=== PATIENT | female | born 1995 | race Caucasian/White ===

== ENCOUNTER 2016-06-19 13:03 | Emergency (ER) | payer OTHER | END 2016-06-19 16:09 | disposition home or self-care (01) | LOC: FER 13:03 | DX: J30.2 Other seasonal allergic rhinitis (principal); J02.9 Acute pharyngitis, unspecified; F17.210 Nicotine dependence, cigarettes, uncomplicated; Z88.9 Allergy status to unspecified drugs, medicaments and biological substances | CPT/HCPCS: 87450; 99283 ==

== ENCOUNTER 2020-09-15 12:26 | Emergency (ER) | payer OTHER ==
[~2020-09-15 12:26] MED LIST: 8 HOUR650 MG PO; IMPLANON; MOTRIN600 MG PO; NAPROXEN500 MG PO; NORCO 5-325 TA1 EACH PO; PEPCID AC20 MG PO; PREDNISONE 20MG20 MG PO; PRENATAL FORMU1 EACH PO; VITAMIN D2000 UNI1 PO; ZYRTEC10 M3 PO
[2020-09-15 14:54] LABS: BASOPHIL 0.3 % (0-2); EOSINOPHIL 1.4 % (0-5); HCT 44.7 % (37.0-47.0); HGB 15.3 g/dl (12.5-16.0); MCH 31.9 pg (25.0-31.0); MCHC 34.2 g/dL (32.0-36.0); MCV 93.1 fL (78.0-100.0); MPV 9.9 fL (6.0-9.5); NRBC 0; PLT 304 K/uL (150-400); RDW 11.8 % (11.5-14.0); WBC 9.5 K/uL (4.0-10.5)
[2020-09-15 15:12] LABS: ALBUMIN 4.1 g/dL (3.4-5.0); BILIRUBIN - TOTAL 0.4 mg/dL (0.2-1.0); BUN/CREAT RATIO (CALC) 13.9 RATIO; CREATININE 0.72 mg/dL (0.51-0.95); GLOBULIN (CALCULATION) 3.5 g/dL; POTASSIUM 3.4 mmol/L (3.5-5.1); TOTAL PROTEIN 7.6 g/dL (6.4-8.2)
[2020-09-15 15:30] LABS: BILIRUBIN NEGATIVE (NEGATIVE); BLOOD NEGATIVE Ery/uL (NEGATIVE); CLARITY HAZY (CLEAR); COLOR YELLOW (YELLOW); GLUCOSE (U) NORMAL (NORMAL); LEUKOCYTES NEGATIVE Leu/uL (NEGATIVE); NITRITE NEGATIVE (NEGATIVE); PROTEIN NEGATIVE (NEGATIVE); SPECIFIC GRAVITY 1.025 (1.001-1.030); UROBILINOGEN 0.2 mg/dL (0.2-1.0); pH 6.5 (5.0-9.0)
[2020-09-15 15:32] LABS: AMPHETAMINES POSITIVE (NEGATIVE); BARBITURATES NEGATIVE (NEGATIVE); ECSTASY (MDMA) NEGATIVE (NEGATIVE); MARIJUANA (THC) NEGATIVE (NEGATIVE); METHADONE NEGATIVE (NEGATIVE); OPIATES NEGATIVE (NEGATIVE)
[2020-09-15 15:33] LABS: OXYCODONE NEGATIVE (NEGATIVE)
[2020-09-15 16:54] LABS: CORONAVIRUS 2019 SARS-COV-2 NEGATIVE (NEGATIVE); INFLUENZA A NAA NEGATIVE (NEGATIVE)
== END 2020-09-15 17:55 | disposition home or self-care (01) ==
LOC: FER 12:26
PROVIDERS: Nurse Practitioner Family
DX: R53.81 Other malaise (principal); R53.83 Other fatigue; F19.90 Other psychoactive substance use, unspecified, uncomplicated; F17.210 Nicotine dependence, cigarettes, uncomplicated; Z90.49 Acquired absence of other specified parts of digestive tract; Z88.8 Allergy status to other drugs, medicaments and biological substances; Z20.822 Contact with and (suspected) exposure to COVID-19
CPT/HCPCS: 36415; 80053; 80305; 81003; 82150; 83690; 85025; 99284; U0002